=== PATIENT | female | born 1975 | race Caucasian/White ===

== ENCOUNTER 2018-04-13 23:11 | Observation (INO) | payer OTHER ==
[~2018-04-13] VITALS: Ht 175.3 cm; Wt 104.8 kg
[2018-04-13 23:29] VITALS: BP 136/70; PULSE 64; RESP 18; TEMP 98; O2SAT 98
[2018-04-13] MEDS ORDERED: LEVO.2 PO (23:39)
[2018-04-13] MEDS ORDERED: PROP20TA3 PO (23:39)
[2018-04-13] MEDS ORDERED: PROZ20CA11 PO (23:39)
[2018-04-13] MEDS ORDERED: LOSA100T PO (23:39)
[2018-04-13] MEDS ORDERED: SODIUM CHLOR 0.9% 1000 ML INJ 1,000 ML IV SCH (23:48)
[2018-04-14] VITALS (8 sets, daily range): BP systolic 121–160; BP diastolic 64–82; PULSE 67–92; RESP 18–20; TEMP 96.9–98.2; O2SAT 94–98
[2018-04-14] MEDS ORDERED: PROCHLORPERAZINE INJ 10 MG/2 ML VIAL IV PUSH ONE
--- NOTE | 2018-04-14 | PD ---
HPI Chief Complaint: Dizziness Time Seen by Provider: 23:25 Travel History International Travel<30 days: No Contact w/Intl Traveler<30days: No Traveled to known affect area: No History of Present Illness HPI The patient is a 42-year-old female that became confused, experienced vertigo and had blurred vision in both eyes today. She states she has generalized myalgias as well. She also has a headache which is in the left frontal area and goes to the left face and is a 5/10. The headache is dull pain. She has nausea without vomiting but diarrhea for 2 weeks. She states she has a history of thyroid cancer and is followed by an legal billing clerk for this. She states she had a similar episode in 2014 but she got better and she really could not give me a diagnosis at that time. She does feel thirsty and may be dehydrated. She states she has abdominal pain in bilateral lower quadrants which is a 6/ 10 and sharp. She denies any blood in the stool. She denies any fever. She has had a hysterectomy but still has her gallbladder and appendix. She has frequent urination but denies any dysuria or flank pain. PFSH Past Medical History ?: Not Past Surgical History Hysterectomy: Yes (AGE 41) Social History Tobacco Use: No Allergies-Medications (Allergen,Severity, Reaction): Coded Allergies: No Known Allergies (Unverified , 04/13/18) Reported Meds & Prescriptions Reported Meds & Active Scripts Active Reported Lipitor (Atorvastatin Calcium) 20 Mg Tab 20 Mg PO HS Prozac (Fluoxetine HCl) 20 Mg Cap 40 Mg PO DAILY Propranolol (Propranolol HCl) 20 Mg Tab 20 Mg PO DAILY Synthroid (Levothyroxine Sodium) 200 Mcg Tab 200 Mcg PO DAILY Losartan (Losartan Potassium) 100 Mg Tab 100 Mg PO DAILY Review of Systems Except as stated in HPI: all other systems reviewed are Neg Physical Exam Narrative GENERAL: The patient is slightly obese, alert, oriented 3 in minimal apparent distress with her abdominal discomfort and her headache. Her vital signs are normal. SKIN: Focused skin assessment warm/dry. No skin rash is seen. HEAD: Atraumatic. Normocephalic. EYES: Pupils equal and round. No scleral icterus. No injection or drainage. The visual acuity is 20/30 in the left eye and 20/25 in the right eye. ENT: No nasal bleeding or discharge. Mucous membranes pink and moist. NECK: Trachea midline. No JVD. There is no meningismus present. CARDIOVASCULAR: Regular rate and rhythm. No murmur appreciated. RESPIRATORY: No accessory muscle use. Clear to auscultation. Breath sounds equal bilaterally. GASTROINTESTINAL: Abdomen soft, with minimal tenderness in the bilateral suprapubic area, nondistended. Hepatic and splenic margins not palpable. No guarding or rebound is present. MUSCULOSKELETAL: No obvious deformities. No clubbing. No cyanosis. No edema. NEUROLOGICAL: Awake and alert. No obvious cranial nerve deficits. Motor grossly within normal limits. Normal speech and gait. PSYCHIATRIC: Appropriate mood and affect; insight and judgment normal. Data Data Last Documented VS Vital Signs Date Time Temp Pulse Resp B/P (MAP) Pulse Ox O2 Delivery O2 Flow Rate FiO2 04/14/18 00:04 67 151/64 (93) 97 Room Air 04/13/18 23:29 98.0 18 Orders Orders Beta Hcg (Quant/Titer) (04/13/18 23:48) Complete Blood Count With Diff (04/13/18 23:48) Comprehensive Metabolic Panel (04/13/18 23:48) Lipase (04/13/18 23:48) Urinalysis - C+S If Indicated (04/13/18 23:48) Iv Access Insert/Monitor (04/13/18 23:48) Ecg Monitoring (04/13/18 23:48) Oximetry (04/13/18 23:48) Sodium Chlor 0.9% 1000 Ml Inj (Ns 1000 M (04/13/18 23:48) Sodium Chloride 0.9% Flush (Ns Flush) (04/14/18 00:00) Prochlorperazine Inj (Compazine Inj) (04/14/18 00:00) Ct Brain W/O Iv Contrast(Rout) (04/14/18 00:06) Admit Order (Ed Use Only) (04/14/18 01:26) Labs Laboratory Tests Test 04/14/18 00:00 White Blood Count 6.2 TH/MM3 Red Blood Count 4.71 MIL/MM3 Hemoglobin 14.2 GM/DL Hematocrit 41.0 % Mean Corpuscular Volume 87.0 FL Mean Corpuscular Hemoglobin 30.1 PG Mean Corpuscular Hemoglobin Concent 34.6 % Red Cell Distribution Width 12.2 % Platelet Count 402 TH/MM3 Mean Platelet Volume 7.9 FL Neutrophils (%) (Auto) 52.7 % Lymphocytes (%) (Auto) 33.6 % Monocytes (%) (Auto) 7.3 % Eosinophils (%) (Auto) 4.0 % Basophils (%) (Auto) 2.4 % Neutrophils # (Auto) 3.4 TH/MM3 Lymphocytes # (Auto) 2.1 TH/MM3 Monocytes # (Auto) 0.4 TH/MM3 Eosinophils # (Auto) 0.2 TH/MM3 Basophils # (Auto) 0.1 TH/MM3 CBC Comment DIFF FINAL Differential Comment Urine Color YELLOW Urine Turbidity CLEAR Urine pH 5.5 Urine Specific [place] 1.020 Urine Protein NEG mg/dL Urine Glucose (UA) NEG mg/dL Urine Ketones NEG mg/dL Urine Occult Blood NEG Urine Nitrite NEG Urine Bilirubin NEG Urine Urobilinogen 0.2 MG/DL Urine Leukocyte Esterase NEG Urine RBC 0-2 /hpf Urine WBC 0-2 /hpf Urine Squamous Epithelial Cells 0-5 /hpf Urine Bacteria NONE /hpf Microscopic Urinalysis Comment CULT NOT INDICATED Blood Urea Nitrogen 15 MG/DL Creatinine 0.70 MG/DL Random Glucose 90 MG/DL Total Protein 7.7 GM/DL Albumin 3.7 GM/DL Calcium Level 9.2 MG/DL Alkaline Phosphatase 68 U/L Aspartate Amino Transf (AST/SGOT) 22 U/L Alanine Aminotransferase (ALT/SGPT) 32 U/L Total Bilirubin 0.3 MG/DL Sodium Level 137 MEQ/L Potassium Level 3.9 MEQ/L Chloride Level 104 MEQ/L Carbon Dioxide Level 23.4 MEQ/L Anion Gap 10 MEQ/L Estimat Glomerular Filtration Rate 91 ML/MIN Lipase 121 U/L Human Chorionic Gonadotropin, Quant LESS THAN 1 MIU/ML MDM Medical Decision Making Medical Screen Exam Complete: Yes Emergency Medical Condition: Yes Medical Record Reviewed: Yes Differential Diagnosis TIA, migraine headache, viral syndrome, benign positional vertigo, electrolyte disorder, hypo-/hyperglycemia, conversion reaction Narrative Course The patient may have had a TIA. The blurred vision is gone at this time. She still has a myalgias, headache and her visual acuity is 20/30 in the left eye and 20/25 in the right eye. She has multiple complaints and some of these may be a viral etiology like the diarrhea for 2 weeks along with the nausea. The blood work is entirely normal. Some of the ocular symptoms may be related to a migraine headache. She denies any history of migraines. I discussed the patient with Dr. Blake, the patient will be admitted to her for 23 hour observation. Diagnosis Primary Impression: TIA (transient ischemic attack) Additional Impression: Viral syndrome Admitting Information Admitting Physician Requests: Observation Keegan Hobson MD Apr 13, 2018 23:59
[2018-04-14] MEDS ORDERED: LIPI20TA PO (00:06)
[2018-04-14 00:13] LABS: BILIRUBIN, URINE NEG (NEG); BLOOD, URINE NEG (NEG); GLUCOSE,URINE NEG (NEG); KETONE, URINE NEG (NEG); NITRITE,URINE NEG (NEG); PH, URINE 5.5 (5.0-8.5); URINE COLOR YELLOW (YELLW/STRAW); URINE LEUKOCYTE ESTERASE NEG (NEG)
[2018-04-14 00:19] LABS: RBC, URINE 0-2 /hpf (0-3); SQUAMOUS EPITHELIAL CELL URINE 0-5 /hpf (0-5); WBC, URINE 0-2 /hpf (0-5)
[2018-04-14 00:21] LABS: CHLORIDE 104 MEQ/L (98-107); SODIUM (NA) 137 MEQ/L (136-145)
[2018-04-14 00:24] LABS: AUTOMATED NEUTROPHIL # 3.4 TH/MM3 (1.8-7.7); BASOPHIL # 0.1 TH/MM3 (0-0.2); BASOPHIL % 2.4 % (0.0-2.0); CALCIUM 9.2 MG/DL (8.5-10.1); EOSINOPHIL # 0.2 TH/MM3 (0-0.4); HEMOGLOBIN 14.2 GM/DL (11.6-15.3); LYMPH % 33.6 % (9.0-44.0); LYMPHOCYTE # 2.1 TH/MM3 (1.0-4.8); MEAN CORPUSCULAR HEMOGLOBIN 30.1 PG (27.0-34.0); MEAN CORPUSCULAR HGB CONC 34.6 % (32.0-36.0); MEAN PLATELET VOLUME 7.9 FL (7.0-11.0); MONO % 7.3 % (0.0-8.0); MONOCYTE # 0.4 TH/MM3 (0-0.9); NEUT % 52.7 % (16.0-70.0); PLATELET COUNT 402 TH/MM3 (150-450); RED BLOOD COUNT 4.71 MIL/MM3 (4.00-5.30); RED CELL DISTRIBUTION WIDTH 12.2 % (11.6-17.2); WHITE BLOOD COUNT 6.2 TH/MM3 (4.0-11.0)
[2018-04-14 00:25] LABS: ALBUMIN 3.7 GM/DL (3.4-5.0); BICARBONATE 23.4 MEQ/L (21.0-32.0); BLOOD UREA NITROGEN 15 MG/DL (7-18); GLUCOSE,RANDOM 90 MG/DL (74-106)
[2018-04-14 00:28] LABS: ALT (GPT) 32 U/L (10-53); AST (GOT) 22 U/L (15-37); GLOMERULAR FILTRATION RATE 91 ML/MIN (>89)
[2018-04-14 00:29] LABS: TOTAL BILIRUBIN ADULT 0.3 MG/DL (0.2-1.0); TOTAL PROTEIN 7.7 GM/DL (6.4-8.2)
[2018-04-14 00:31] LABS: ALKALINE PHOSPHATASE 68 U/L (45-117)
--- NOTE | 2018-04-14 00:33 | RADRPT ---
EXAM DATE: 04/14/2018 12:21 AM EDT AGE/SEX: 42 years / Female INDICATIONS: Dizziness. Blurred vision. CLINICAL DATA: This is the patient's initial encounter. Patient reports that signs and symptoms have been present for 1 day and indicates a pain score of 6/10. MEDICAL/SURGICAL HISTORY: Hypertension. None. RADIATION DOSE: 52.41 CTDI (mGy) COMPARISON: No prior exams available for comparison. TECHNIQUE: CT of the head without contrast. Using automated exposure control and adjustment of the mA and/or kV according to patient size, radiation dose was kept as low as reasonably achievable to ob tain optimal diagnostic quality images. DICOM format image data is available electronically for revi ew and comparison. FINDINGS: Cerebrum: The ventricles are normal for age. No evidence of midline shift, mass lesion, hemorrhage or acute infarction. No extraaxial fluid collections are seen. Posterior Fossa: The cerebellum and brainstem are intact. The 4th ventricle is midline. The cerebe llopontine angle is unremarkable. Extracranial: The visualized portion of the orbits is intact. Skull: The calvaria is intact. No evidence of skull fracture. CONCLUSION: Negative noncontrast CT examination of the head. Electronically signed by: Albert Mg MD 04/14/2018 12:31 AM EDT
[2018-04-14] MEDS ORDERED: DEXTROSE 50% IN WATER 50 ML VIAL(D50) IV PUSH PRN (01:30)
[2018-04-14] MEDS ORDERED: GLUCAGON 1 MG/ML VIAL OTHER PRN (01:30)
[2018-04-14] MEDS ORDERED: SODIUM CHLORIDE 0.9% FLUSH 10 ML FLUSH IV FLUSH PRN ×2 (01:30)
[2018-04-14] MEDS ORDERED: ASPIRIN 325 MG TAB PO SCH (01:30)
[2018-04-14] MEDS: INSULIN ASPART SUPPLEMENTAL SCALE SQ SCH ×4 (08:00→21:00)
[2018-04-14] MEDS: SODIUM CHLORIDE 0.9% FLUSH 10 ML FLUSH IV FLUSH SCH ×2 (08:14→22:05)
--- NOTE | 2018-04-14 10:48 | HHI.HP ---
HPI Service [facility] Primary Care Physician No Primary Care Physician Admission Diagnosis TIA, viral syndrome Diagnoses: (1) TIA (transient ischemic attack) (2) Viral syndrome Chief Complaint: Dizziness Blurry vision Travel History International Travel<30 Days: No Contact w/Intl Traveler <30 Da: No Traveled to Known Affected Are: No History of Present Illness This is a 42-year-old female patient with a known medical history of hypertension, hyperlipidemia, thyroid cancer status post thyroidectomy who presented to the ED with complaints of dizziness, blurry vision and poor balance at home. Patient states that her symptoms started 2 days ago and has not improved. She does also admit to a frontal headache that is intermittent and comes and goes during the day. She states she has been taking naproxen which does relieve the headache. She does also admit to increasing fatigue as well as general malaise. She does admit to intermittent nausea as well as diarrhea. Patient also admits to some abdominal pain in the bilateral lower quadrants, worse with movement and sharp in nature. She denies any chest pain, shortness of breath, cough, vomiting or dysuria. Patient does have a history of thyroid cancer, follows with an metaphysics teacher Dr. Verma, was last seen a week ago. At that time her TSH was less than 0.02 and per patient her levothyroxine dose was adjusted. Patient does admit to similar symptoms in 2014 , did not follow with a neurologist and symptoms just improved on their own. Does not have a PCP. Upon assessment this morning, patient's symptoms have resolved. Does complain of continued fatigue. Physical therapy evaluation performed today, no further need for assessment. Head CT negative. Awaiting MRI as well as neurology consult. Review of Systems Constitutional: COMPLAINS OF: Fatigue, Dizziness, DENIES: Fever, Chills, Change in appetite Eyes: COMPLAINS OF: Blurred vision, DENIES: Diplopia, Eye pain, Vision loss, Double Vision Ears, nose, mouth, throat: DENIES: Hearing loss, Oral lesions, Ear Pain Respiratory: DENIES: Cough, Sputum production, Shortness of breath Cardiovascular: DENIES: Chest pain, Palpitations, Syncope Gastrointestinal: COMPLAINS OF: Abdominal pain, Nausea, DENIES: Black stools, Bloody stools, Constipation, Diarrhea, Vomiting Genitourinary: DENIES: Abnormal vaginal bleeding Musculoskeletal: DENIES: Joint pain Hematologic/lymphatic: DENIES: Bruising Immunologic/allergic: DENIES: Eczema Neurologic: COMPLAINS OF: Headache, Poor Balance Psychiatric: COMPLAINS OF: Anxiety Except as stated in HPI: all other systems reviewed are Neg Past Family Social History Past Medical History History of thyroid cancer status post thyroidectomy Hypertension Hyperlipidemia Past Surgical History Hysterectomy in 2012 Thyroidectomy. Reported Medications Active Reported Lipitor (Atorvastatin Calcium) 20 Mg Tab 20 Mg PO HS Prozac (Fluoxetine HCl) 20 Mg Cap 40 Mg PO DAILY Propranolol (Propranolol HCl) 20 Mg Tab 20 Mg PO DAILY Synthroid (Levothyroxine Sodium) 200 Mcg Tab 200 Mcg PO DAILY Losartan (Losartan Potassium) 100 Mg Tab 100 Mg PO DAILY Allergies: Coded Allergies: No Known Allergies (Unverified , 04/13/18) Active Ordered Medications Current Medications Medications (Trade) Dose Ordered Sig/Milena Route Start Time Stop Time Status Last Admin (NS Flush) 2 ml BID IV FLUSH 04/14/18 09:00 04/14/18 08:14 (NS Flush) 2 ml UNSCH PRN IV FLUSH 04/14/18 01:30 (NovoLOG SUPPLEMENTAL SCALE) 1 ACHS SQ 04/14/18 08:00 (D50w (Vial) Inj) 50 ml UNSCH PRN IV PUSH 04/14/18 01:30 (Glucagon Inj) 1 mg UNSCH PRN OTHER 04/14/18 01:30 Family History Family history significant for hypertension, diabetes and hyperlipidemia. Maternal grandmother had history of bone cancer. Social History Patient denies any tobacco, alcohol or illicit drug use. Physical Exam Vital Signs Vital Signs Date Time Temp Pulse Resp B/P (MAP) Pulse Ox O2 Delivery O2 Flow Rate FiO2 04/14/18 07:36 98.0 75 20 160/81 (107) 94 04/14/18 04:00 96.9 87 18 140/82 (101) 95 04/14/18 02:00 96.9 73 18 146/77 (100) 96 04/14/18 01:57 04/14/18 00:04 67 151/64 (93) 97 Room Air 04/13/18 23:50 59 Room Air 04/13/18 23:29 98.0 64 18 136/70 (49) 98 Physical Exam GENERAL: Well-developed, well-nourished patient in NAD. SKIN: Warm and dry. No rash. HEAD: Normocephalic. Atraumatic. EYES: Pupils equal and round. No scleral icterus. No injection or drainage. ENT: No nasal bleeding or discharge. Mucous membranes pink and moist. NECK: Supple. Trachea midline. CARDIOVASCULAR: Regular rate and rhythm. S1, S2 noted. No murmur appreciated. RESPIRATORY: No accessory muscle use. Clear to auscultation. Breath sounds equal bilaterally. GASTROINTESTINAL: Abdomen soft, non-tender, nondistended. Normoactive bowel sounds x4. MUSCULOSKELETAL: No obvious deformities. Extremities without clubbing, cyanosis , or edema. NEUROLOGICAL: Awake and alert. No obvious cranial nerve deficits. Motor grossly within normal limits. 5/5 muscle strength in bilateral upper and lower extremities. Normal speech. PSYCHIATRIC: Appropriate mood and affect; insight and judgment normal. Laboratory Laboratory Tests Test 04/14/18 00:00 White Blood Count 6.2 Red Blood Count 4.71 Hemoglobin 14.2 Hematocrit 41.0 Mean Corpuscular Volume 87.0 Mean Corpuscular Hemoglobin 30.1 Mean Corpuscular Hemoglobin Concent 34.6 Red Cell Distribution Width 12.2 Platelet Count 402 Mean Platelet Volume 7.9 Neutrophils (%) (Auto) 52.7 Lymphocytes (%) (Auto) 33.6 Monocytes (%) (Auto) 7.3 Eosinophils (%) (Auto) 4.0 Basophils (%) (Auto) 2.4 Neutrophils # (Auto) 3.4 Lymphocytes # (Auto) 2.1 Monocytes # (Auto) 0.4 Eosinophils # (Auto) 0.2 Basophils # (Auto) 0.1 CBC Comment DIFF FINAL Differential Comment Urine Color YELLOW Urine Turbidity CLEAR Urine pH 5.5 Urine Specific [place] 1.020 Urine Protein NEG Urine Glucose (UA) NEG Urine Ketones NEG Urine Occult Blood NEG Urine Nitrite NEG Urine Bilirubin NEG Urine Urobilinogen 0.2 Urine Leukocyte Esterase NEG Urine RBC 0-2 Urine WBC 0-2 Urine Squamous Epithelial Cells 0-5 Urine Bacteria NONE Microscopic Urinalysis Comment CULT NOT INDICATED Blood Urea Nitrogen 15 Creatinine 0.70 Random Glucose 90 Total Protein 7.7 Albumin 3.7 Calcium Level 9.2 Alkaline Phosphatase 68 Aspartate Amino Transf (AST/SGOT) 22 Alanine Aminotransferase (ALT/SGPT) 32 Total Bilirubin 0.3 Sodium Level 137 Potassium Level 3.9 Chloride Level 104 Carbon Dioxide Level 23.4 Anion Gap 10 Estimat Glomerular Filtration Rate 91 Lipase 121 Human Chorionic Gonadotropin, Quant LESS THAN 1 Result Diagram: 04/14/18 0000 04/14/18 0000 Imaging Last Impressions Head CT 04/14/18 0006 Signed Impressions: CONCLUSION: Negative noncontrast CT examination of the head. Septic Shock Reassessment Septic shock perfusion: reassessment completed Caprini VTE Risk Assessment Caprini VTE Risk Assessment: No/Low Risk (score <= 1) Caprini Risk Assessment Model Point Value = 1 Point Value = 2 Point Value = 3 Point Value = 5 Age 41-60 Minor surgery BMI > 25 kg/m2 Swollen legs Varicose veins or History of unexplained or recurrent spontaneous Oral contraceptives or hormone replacement Sepsis (< 1 month) Serious lung disease, including pneumonia (< 1 month) Abnormal pulmonary function Acute myocardial infarction Congestive heart failure (< 1 month) History of inflammatory bowel disease Medical patient at bed rest Age 61-74 Arthroscopic surgery Major open surgery (> 45 min) Laparoscopic surgery (> 45 min) Malignancy Confined to bed (> 72 hours) Immobilizing plaster cast Central venous access Age >= 75 History of VTE Family history of VTE Factor V Leiden Prothrombin [id number] Lupus anticoagulant Anticardiolipin antibodies Elevated serum homocysteine Heparin-induced thrombocytopenia Other congenital or acquired thrombophilia Stroke (< 1 month) Elective arthroplasty Hip, pelvis, or leg fracture Acute spinal cord injury (< 1 month) Prophylaxis Regimen Total Risk Factor Score Risk Level Prophylaxis Regimen 0-1 Low Early ambulation 2 Moderate Order ONE of the following: *Sequential Compression Device (SCD) *Heparin 5000 units SQ BID 3-4 Higher Order ONE of the following medications: *Heparin 5000 units SQ TID *Enoxaparin/Lovenox 40 mg SQ daily (WT < 150 kg, CrCl > 30 mL/min) *Enoxaparin/Lovenox 30 mg SQ daily (WT < 150 kg, CrCl > 10-29 mL/min) *Enoxaparin/Lovenox 30 mg SQ BID (WT < 150 kg, CrCl > 30 mL/min) AND/OR *Sequential Compression Device (SCD) 5 or more Highest Order ONE of the following medications: *Heparin 5000 units SQ TID (Preferred with Epidurals) *Enoxaparin/Lovenox 40 mg SQ daily (WT < 150 kg, CrCl > 30 mL/min) *Enoxaparin/Lovenox 30 mg SQ daily (WT < 150 kg, CrCl > 10-29 mL/min) *Enoxaparin/Lovenox 30 mg SQ BID (WT < 150 kg, CrCl > 30 mL/min) AND *Sequential Compression Device (SCD) Assessment and Plan Assessment and Plan This is a 42-year-old female patient with a known medical history of hypertension, hyperlipidemia, thyroid cancer status post thyroidectomy who presented to the ED with complaints of dizziness, blurry vision and poor balance at home. Rule out CVA versus TIA - Patient presented with dizziness, blurry vision and headache. Symptoms have improved. - Head CT reviewed showing no acute disease. Brain MRI pending. Will follow. - Neurology consulted, input and recommendations pending. - CBC and BMP reviewed, essentially unremarkable. UA negative. - Continue cardiac telemetry, monitor for any arrhythmias. - PT has seen patient, appreciate input and recommendations, no further recommendations. Abdominal pain with nausea and diarrhea 2 weeks - Rule out viral syndrome - Check abdominal/pelvis CT. Likely gastroenteritis. Will add stool studies including c diff. - Ensure hydration. Encourage PO intake. Status post 1 L NS bolus in ED. Thyroid disease status post thyroidectomy: TSH 0.02. Awaiting free T4. We will hold home levothyroxine for now. Hypertension, chronic: Will continue home medications. Monitor blood pressure trends. Hyperlipidemia, chronic: Will continue home statin. DVT prophylaxis: SCDs. Maria Alejandra Hobbs Apr 14, 2018 10:48
[2018-04-14] MEDS ORDERED: DIATRIZOATE MEGLUM/DIATRIZOATE SOD 9 ML CUP PO ONE (13:00)
--- NOTE | 2018-04-14 13:36 | EKG ---
Date Performed: 04/13/2018 Time Performed: 23:40:22 PTAGE: 42 years EKG: SINUS BRADYCARDIA BORDERLINE ECG NO PREVIOUS TRACING DOCTOR: Wander Cadena Interpretating Date/Time 04/14/2018 13:34:50
[2018-04-14 13:40] LABS: HEMOGLOBIN A1C 5.5 % (4.3-6.0)
[2018-04-14 14:14] LABS: FREE T4 1.39 NG/DL (0.76-1.46)
[2018-04-14] MEDS ORDERED: IOHEXOL 350 MG/ML 10 ML VIAL (for RAD DIAG) IVCONTRAST ONE (15:35)
--- NOTE | 2018-04-14 15:50 | RADRPT ---
EXAM DATE: 04/14/2018 3:41 PM EDT AGE/SEX: 42 years / Female INDICATIONS: Bilateral lower quadrant pain. CLINICAL DATA: This is the patient's initial encounter. Patient reports that signs and symptoms have been present for 3 days and indicates a pain score of 4/10. MEDICAL/SURGICAL HISTORY: Hypertension. Gastroesophageal reflux disease. Carcinoma, thyroid. Hysterectomy. Thyroidectomy. ORAL CONTRAST: Prescribed oral contrast ingested. RADIATION DOSE: 21.59 CTDI (mGy) COMPARISON: No prior exams available for comparison. TECHNIQUE: Multiple contiguous axial images were obtained through the abdomen and pelvis following b olus infusion of 95 ml Omnipaque 350 (iohexol) nonionic water-soluble contrast as a single exam dos e. Prescribed oral contrast ingested. Using automated exposure control and adjustment of the mA and/ or kV according to patient size, radiation dose was kept as low as reasonably achievable to obtain op timal diagnostic quality images. DICOM format image data is available electronically for review and comparison. FINDINGS: Lower chest: No acute abnormality is identified. Hepatobiliary: No focal liver lesion is identified. Hepatic vasculature demonstrates no abnormality. No calcified gallstones are present. Kidneys: No hydronephrosis, stone, or mass. Adrenal Glands: Within normal limits. Spleen: Within normal limits. Pancreas: Within normal limits. Vascular: The aorta is nonaneurysmal. Bowel/Mesentery: The stomach and small bowel demonstrate no abnormality. No acute colon abnormality i s seen. There is no free intraperitoneal air or fluid. The appendix is normal. Abdominal Wall: No hernia is visualized. Retroperitoneum: No lymphadenopathy. Bladder: No wall thickening or mass. Reproductive: Uterus is absent. There are bilateral ovarian cystic lesions measuring up to 1.7 cm on the left and 2.3 cm on the right. These appear simple. Inguinal: No lymphadenopathy or hernia. Musculoskeletal: No acute osseous abnormality is identified. CONCLUSION: 1. No specific abnormality is identified to explain the bilateral lower quadrant pain. There are mary ann ateral ovarian cystic lesions that most likely represent large functional cyst/follicles. 2. Remainder of the examination is within normal limits. Electronically signed by: Albert Salmeron MD 04/14/2018 3:49 PM EDT
--- NOTE | 2018-04-14 15:56 | RADRPT ---
EXAM DATE: 04/14/2018 3:42 PM EDT AGE/SEX: 42 years / Female INDICATIONS: CVA. Confusion. CLINICAL DATA: This is the patient's initial encounter. Patient reports that signs and symptoms have been present for 2 days and indicates a pain score of 0/10. MEDICAL/SURGICAL HISTORY: Hypertension. Hypercholesterolemia. Carcinoma, thyroid. Hysterectom y. Thyroidectomy. COMPARISON: [facility], CT BRAIN W/O CONTRAST, 04/14/2018. . TECHNIQUE: Multiplanar, multisequence examination of the brain was performed without contrast. FINDINGS: Cerebrum: Ventricles are normal. No midline shift, mass lesion, hemorrhage or acute infarction. No extraaxial fluid collections are seen. The pituitary gland and suprasellar cistern are normal in con figuration. White Matter: Posterior Fossa: The cerebellum and brainstem demonstrate no acute abnormality. The 4th ventricle is midline. The cerebellopontine angle is within normal limits. The cerebellar tonsils are normal in p osition. Diffusion Imaging: No areas of restricted diffusion are seen. Extracranial: The visualized sinuses are clear. CONCLUSION: Negative brain MRI without contrast. There are no findings to indicate recent ischemia. Electronically signed by: Albert Salmeron MD 04/14/2018 3:55 PM EDT
--- NOTE | 2018-04-14 19:43 | MB ---
cc: Tobias Jonas MD, PhD DATE: 04/14/2018 REASON FOR CONSULTATION: Possible TIA. HISTORY OF PRESENT ILLNESS: This is a pleasant 42-year-old female who states that she was in her usual state of good health until the weekend, when she developed sudden onset of dizziness as well as blurred vision and balance difficulty. That eventually improved but then she had a recurrent episode the day after and this persisted, so she came to the emergency room. She had a mild frontal headache. Her symptoms have largely improved at the present time. She had no double vision or focal weakness or numbness. PAST MEDICAL HISTORY: Remarkable for history of thyroid cancer treated with thyroidectomy, hypertension, hyperlipidemia, and hysterectomy. MEDICATIONS AT HOME: 1. Lipitor. 2. Prozac. 3. Propranolol. 4. Synthroid. 5. Losartan. ALLERGIES: NONE KNOWN. NEUROLOGIC EXAMINATION: VITAL SIGNS: Blood pressure is 124/68, pulse is 72, respiratory rate is 20, temperature 97.8 degrees. HIGHER CORTICAL FUNCTIONS: Normal. She is alert. Speech is normal. CRANIAL NERVES: The extraocular movements are normal. There is no nystagmus. The pupils are equal and reactive. MOTOR EXAM: She has 5/5 strength in all groups. There is no drift. Fine motor skills normal. Cerebellar testing is normal. Reflexes are 2+ symmetrically in the upper and lower extremities. IMAGING STUDIES: CT of the brain is normal. MRI of the brain is normal. Abdominal CT shows bilateral ovarian cysts remaining normal. LABORATORY DATA: White count 6200; hemoglobin 14.2; hematocrit 41%; platelet count 402,000. The sodium is 137, potassium 3.9, chloride 104, CO2 of 23.4, BUN is 15, creatinine 0.7, GFR 91, glucose is 90. Hemoglobin A1c 5.5, AST 22, ALT 32. TSH 0.26. UA is normal. ASSESSMENT: Transient ataxia and vertigo associated with a mild headache. This may be a neurologic migraine. She also has a history of abdominal pain with nausea and diarrhea for 2 weeks. Transient ischemic attack would be in the differential, although somewhat less likely. RECOMMENDATIONS: I would like to get an MR angiogram of the brain to be sure there is no vascular lesion. Start aspirin 81 mg daily for the possible TIA. Also, check labs to rule out hypercoagulable state and a carotid ultrasound and echocardiogram. The other possibility would be some transient hypotension related to her gastroenteritis. We will check orthostatic blood pressure and pulse to be sure she does not have orthostatic hypotension. Tobias Jonas MD, PhD ISMA/KATHI , 05:51 PM , 07:42 PM
[2018-04-14] MEDS ORDERED: ATORVASTATIN 20 MG TAB PO SCH (21:00)
[2018-04-15] VITALS: BP 135/74; PULSE 95; RESP 20; TEMP 98.1; O2SAT 98
[2018-04-15 04:00] VITALS: BP 146/72; PULSE 88; RESP 20; TEMP 97.4; O2SAT 97
[2018-04-15 06:34] LABS: AUTOMATED NEUTROPHIL # 3.8 TH/MM3 (1.8-7.7); BASOPHIL % 0.2 % (0.0-2.0); EOSINOPHIL # 0.1 TH/MM3 (0-0.4); EOSINOPHIL % 1.7 % (0.0-4.0); HEMATOCRIT 40.1 % (35.0-46.0); HEMOGLOBIN 13.9 GM/DL (11.6-15.3); LYMPH % 25.6 % (9.0-44.0); LYMPHOCYTE # 1.5 TH/MM3 (1.0-4.8); MEAN CELL VOLUME 87.5 FL (80.0-100.0); MEAN CORPUSCULAR HEMOGLOBIN 30.4 PG (27.0-34.0); MEAN CORPUSCULAR HGB CONC 34.7 % (32.0-36.0); MEAN PLATELET VOLUME 7.5 FL (7.0-11.0); MONOCYTE # 0.5 TH/MM3 (0-0.9); NEUT % 64.5 % (16.0-70.0); PLATELET COUNT 376 TH/MM3 (150-450); RED BLOOD COUNT 4.59 MIL/MM3 (4.00-5.30); RED CELL DISTRIBUTION WIDTH 11.7 % (11.6-17.2); WHITE BLOOD COUNT 5.9 TH/MM3 (4.0-11.0)
[2018-04-15 06:53] LABS: BICARBONATE 25.1 MEQ/L (21.0-32.0)
[2018-04-15 06:56] LABS: CREATININE 0.6 MG/DL (0.50-1.00)
[2018-04-15] MEDS: INSULIN ASPART SUPPLEMENTAL SCALE SQ SCH (07:42)
[2018-04-15 08:00] VITALS: BP 147/76; PULSE 71; RESP 17; TEMP 97.6; O2SAT 97
[2018-04-15] MEDS: SODIUM CHLORIDE 0.9% FLUSH 10 ML FLUSH IV FLUSH SCH (08:25)
[2018-04-15] MEDS ORDERED: FLUoxetine HCL 20 MG CAP PO SCH (09:00)
[2018-04-15] MEDS ORDERED: LOSARTAN 50 MG TAB PO SCH (09:00)
[2018-04-15] MEDS ORDERED: PROPRANOLOL HCL 20 MG TAB PO SCH (09:00)
[2018-04-15] MEDS ORDERED: ASPIRIN 81 MG CHEW TAB PO SCH (09:00)
--- NOTE | 2018-04-15 09:05 | HHI.PR ---
Subjective Remarks Follow-up neuro changes, abdominal pain. Patient seen and examined, lying in bed comfortably no apparent distress. Neurology input appreciated. Awaiting MRI this morning. Patient does complain of continued headache. States she has not eat anything which may be contributing. Vital signs stable overnight. Afebrile. Denies any chest pain or shortness of breath. Objective Vitals Vital Signs Date Time Temp Pulse Resp B/P (MAP) Pulse Ox O2 Delivery O2 Flow Rate FiO2 04/15/18 08:00 97.6 71 17 147/76 (99) 97 04/15/18 04:00 97.4 88 20 146/72 (96) 97 04/15/18 00:00 98.1 95 20 135/74 (94) 98 04/14/18 23:00 92 04/14/18 20:00 98.2 85 20 142/66 (91) 96 04/14/18 15:14 97.8 72 20 124/68 (86) 98 04/14/18 11:22 98.0 67 20 121/69 (86) 98 I/O 04/14/18 04/14/18 04/14/18 04/15/18 04/15/18 04/15/18 07:00 15:00 23:00 07:00 15:00 23:00 Intake Total 1000 ml 0 ml 0 ml Balance 1000 ml 0 ml 0 ml Intake Oral 0 ml 0 ml 0 ml IV Total 1000 ml # Voids 4 4 8 # Bowel Movements 4 8 Result Diagram: 04/15/18 0550 04/15/18 0550 Imaging Last Impressions Head Magnetic Resonance Angiography 04/15/18 0000 Signed Impressions: CONCLUSION: 1. Patient is left vertebral dominant. Anatomic variant of the [place] s as above. 2. Otherwise, intracranial vessels are all patent without aneurysmal disease. Carotid Artery Ultrasound 04/15/18 0000 Signed Impressions: CONCLUSION: No evidence of flow-limiting carotid stenosis. Head CT 04/14/18 0006 Signed Impressions: CONCLUSION: Negative noncontrast CT examination of the head. Brain MRI 04/14/18 0000 Signed Impressions: CONCLUSION: Negative brain MRI without contrast. There are no findings to indicate recent i schemia. Abdomen/Pelvis CT 04/14/18 0000 Signed Impressions: CONCLUSION: 1. No specific abnormality is identified to explain the bilateral lower quadra nt pain. There are bilateral ovarian cystic lesions that most likely represent large functional cyst/follicles. 2. Remainder of the examination is within normal limits. Objective Remarks GENERAL: Well-developed, well-nourished patient in NAD. SKIN: Warm and dry. No rash. HEAD: Normocephalic. Atraumatic. EYES: Pupils equal and round. No scleral icterus. No injection or drainage. ENT: No nasal bleeding or discharge. Mucous membranes pink and moist. NECK: Supple. Trachea midline. CARDIOVASCULAR: Regular rate and rhythm. S1, S2 noted. No murmur appreciated. RESPIRATORY: No accessory muscle use. Clear to auscultation. Breath sounds equal bilaterally. GASTROINTESTINAL: Abdomen soft, non-tender, nondistended. Normoactive bowel sounds x4. MUSCULOSKELETAL: No obvious deformities. Extremities without clubbing, cyanosis , or edema. NEUROLOGICAL: Awake and alert. No obvious cranial nerve deficits. Motor grossly within normal limits. 5/5 muscle strength in bilateral upper and lower extremities. Normal speech. PSYCHIATRIC: Appropriate mood and affect; insight and judgment normal. A/P Problem List: (1) TIA (transient ischemic attack) ICD Code: G45.9 - Transient cerebral ischemic attack, unspecified Status: Acute (2) Viral syndrome ICD Code: B34.9 - Viral infection, unspecified Status: Acute Assessment and Plan This is a 42-year-old female patient with a known medical history of hypertension, hyperlipidemia, thyroid cancer status post thyroidectomy who presented to the ED with complaints of dizziness, blurry vision and poor balance at home. Rule out CVA versus TIA - Patient presented with dizziness, blurry vision and headache. Symptoms have improved. - Head CT reviewed showing no acute disease. Brain MRI negative. Carotid ultrasound negative. - Neurology consulted, appreciate input and recommendations. Awaiting ordered lab work. Follow. - CBC and BMP reviewed, essentially unremarkable. UA negative. Lipid panel unremarkable. - Continue cardiac telemetry, monitor for any arrhythmias. No arrhythmias overnight. - PT has seen patient, appreciate input and recommendations, no further recommendations. Abdominal pain with nausea and diarrhea 2 weeks - Rule out viral syndrome/enteritis - Abdominal/pelvis CT reviewed showing no specific abnormality. Likely gastroenteritis. Stool studies pending. Follow. - Ensure hydration. Encourage PO intake. Status post 1 L NS bolus in ED. Thyroid disease status post thyroidectomy: TSH 0.02. Free T4 1.39. We will hold home levothyroxine for now. Hypertension, chronic: Will continue home medications. Monitor blood pressure trends. Hyperlipidemia, chronic: Will continue home statin. DVT prophylaxis: SCDs. Discharge Planning Pending clinical improvement as well as neurological workup. Maria Alejandra Hobbs Apr 15, 2018 09:05
--- NOTE | 2018-04-15 10:50 | RADRPT ---
EXAM DATE: 04/15/2018 9:52 AM EDT AGE/SEX: 42 years / Female INDICATIONS: Transient ischemic attack. CLINICAL DATA: This is the patient's initial encounter. Patient reports that signs and symptoms have been present for 1 day and indicates a pain score of 0/10. MEDICAL/SURGICAL HISTORY: Hypercholesterolemia. Gastroesophageal reflux disease. Thyroid disea se. Hyperlipidemia. Abdominal pain. Ovarian cysts. Depression. Anxiety. Anemia. Hysterectomy. COMPARISON: No prior exams available for comparison. VELOCITY PARAMETERS: ICA/CCA Ratio: Right 0.9 , Left 1.2 ICA: Right 87 cm/sec, Left 108 cm/sec CCA: Right 92 cm/sec, Left 92 cm/sec ECA: Right 84 cm/sec, Left 92 cm/sec Vertebral: Right 51 cm/sec antegrade, Left 52 cm/sec antegrade FINDINGS: Right Carotid: No significant plaque is visualized.The waveforms are within normal limits. Left Carotid: No significant plaque is visualized. The waveforms are within normal limits. Other: None. CONCLUSION: No evidence of flow-limiting carotid stenosis. Electronically signed by: Albert Francis MD 04/15/2018 10:49 AM EDT
[2018-04-15 10:54] LABS: CHOLESTEROL/ HDL RATIO 4.75 RATIO; HDL CHOLESTEROL 39.3 MG/DL (40.0-60.0)
--- NOTE | 2018-04-15 11:24 | RADRPT ---
EXAM DATE: 04/15/2018 11:12 AM EDT AGE/SEX: 42 years / Female INDICATIONS: Dizziness. CLINICAL DATA: This is the patient's subsequent encounter. Patient reports that signs and symptoms h ave been present for 2 days and indicates a pain score of 0/10. MEDICAL/SURGICAL HISTORY: Hypertension. Carcinoma, thyroid. Hysterectomy. Thyroidectomy. COMPARISON: No prior exams available for comparison. TECHNIQUE: 3D [id number] MRA was performed. Source images, multiplanar STS MIP, and 3D volum e MIP reconstructions were reviewed. FINDINGS: There is excellent visualization of the major intracranial arteries out to the second-order branch ve ssels. There is no evidence for aneurysm, vessel truncation or stenosis, and no evidence for vascula r malformation. Patient is left vertebral dominant. 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 Dominant supply to the left posterior cerebral artery is via the left kidney. 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 CONCLUSION: 1. Patient is left vertebral dominant. Anatomic variant of the [place] as above. 2. Otherwise, intracranial vessels are all patent without aneurysmal disease. Electronically signed by: Pritesh Clemons MD 04/15/2018 11:22 AM EDT
[2018-04-15 12:00] VITALS: BP_SYST 130; BP_SYST 137; BP_SYST 155; BP_DIAS 74; BP_DIAS 91; BP_DIAS 94; PULSE 71; RESP 16; TEMP 97.2; O2SAT 98
--- NOTE | 2018-04-15 13:24 | ECHRPT ---
Indication: TIA CONCLUSIONS The left ventricular systolic function is low normal with an estimated ejection fraction in the rang e of 50- 55%. Mild concentric left ventricular hypertrophy. Normal left ventricular size. Trace mitral valve regurgitation. There is trace tricuspid valve regurgitation. The estimated pulmonary arterial pressure is 29.4 mmHg. BP: / HR: Rhythm: Sinus MEASUREMENTS (Male / Female) Normal Values Technical Quality:Fair 2D ECHO LV Diastolic Diameter PLAX 3.8 cm 4.2 - 5.9 / 3.9 - 5.3 cm LV Systolic Diameter PLAX 2.9 cm IVS Diastolic Thickness 1.0 cm 0.6 - 1.0 / 0.6 - 0.9 cm LVPW Diastolic Thickness 1.0 cm 0.6 - 1.0 / 0.6 - 0.9 cm LV Relative Wall Thickness 0.5 RV Internal Dim ED PLAX 3.3 cm LVOT Diameter 1.9 cm LA Systolic Diameter LX 3.2 cm 3.0 - 4.0 / 2.7 - 3.8 cm M-MODE Aortic Root Diameter MM 2.9 cm LA Systolic Diameter MM 3.4 cm LA Ao Ratio MM 1.2 AV Cusp Separation MM 2.0 cm DOPPLER AV Peak Velocity 152.0 cm/s AV Peak Gradient 9.2 mmHg LVOT Peak Velocity 129.0 cm/s LVOT Peak Gradient 6.7 mmHg AV Area Cont Eq pk 2.4 cm MV Area PHT 3.4 cm Mitral E Point Velocity 88.8 cm/s Mitral A Point Velocity 57.6 cm/s Mitral E to A Ratio 1.5 LV E' Lateral Velocity 16.0 cm/s Mitral E to LV E' Lateral Ratio 5.5 LV E' Septal Velocity 9.9 cm/s Mitral E to LV E' Septal Ratio 8.9 TR Peak Velocity 220.0 cm/s TR Peak Gradient 19.4 mmHg Right Atrial Pressure 10.0 mmHg Pulmonary Artery Systolic Pressu 29.4 mmHg Right Ventricular Systolic Press 29.4 mmHg FINDINGS LEFT VENTRICLE The left ventricular systolic function is low normal with an estimated ejection fraction in the rang e of 50- 55%. Mild concentric left ventricular hypertrophy. Normal left ventricular size. RIGHT VENTRICLE Normal right ventricular size and systolic function. LEFT ATRIUM The left atrial size is normal. RIGHT ATRIUM The right atrial size is normal. ATRIAL SEPTUM Normal atrial septal thickness without atrial level shunting by limited color doppler interrogation. AORTA The aortic root and proximal ascending aorta are normal in size on limited imaging. MITRAL VALVE Structurally normal mitral valve. Trace mitral valve regurgitation. AORTIC VALVE Trileaflet aortic valve. No aortic valve stenosis or regurgitation. TRICUSPID VALVE Structurally normal tricuspid valve. There is trace tricuspid valve regurgitation. The estimated pulmonary arterial pressure is 29.4 mmHg. PULMONARY VALVE No pulmonary valve regurgitation or stenosis. VESSELS The inferior vena cava is normal in size. PERICARDIUM No pericardial effusion. Luis Montana MD, FACC, [facility] – [place] (Electronically Signed) Final Date:15 April 2018 13:23
[2018-04-15] MEDS ORDERED: ASPI81 PO (14:28)
--- NOTE | 2018-04-15 14:28 | HHI.DCPOC ---
Discharge Care Plan Diagnosis: (1) TIA (transient ischemic attack) (2) Viral syndrome Goals to Promote Your Health * To prevent worsening of your condition and complications * To maintain your health at the optimal level Directions to Meet Your Goals Take your medications as prescribed Follow your dietary instruction Follow activity as directed Keep your appointments as scheduled Take your immunizations and boosters as scheduled If your symptoms worsen call your PCP, if no PCP go to Urgent Care Center or Emergency Room Smoking is Dangerous to Your Health. Avoid second hand smoke Call the 24-hour hour crisis hotline for domestic abuse at Maria Alejandra Hobbs Apr 15, 2018 14:28
[2018-04-16 15:16] LABS: CARDIOLIPIN IGG AB <9.4 GPL; CARDIOLIPIN IGM AB <9.4 MPL
== END 2018-04-15 16:29 | disposition home or self-care (01) ==
LOC: PHED 23:11 → PHEDA 04-14 01:29 → PH3B 04-14 01:58
PROVIDERS: ADMIT Hospitalist; ATTEND Hospitalist
DX: G45.9 Transient cerebral ischemic attack, unspecified (principal); M79.1 Myalgia; R51 Headache; R11.0 Nausea; R19.7 Diarrhea, unspecified; Z85.850 Personal history of malignant neoplasm of thyroid; Z90.710 Acquired absence of both cervix and uterus; R35.0 Frequency of micturition; Z79.899 Other long term (current) drug therapy; I10 Essential (primary) hypertension; E78.5 Hyperlipidemia, unspecified; B34.9 Viral infection, unspecified; R00.1 Bradycardia, unspecified
CPT/HCPCS: 70450; 70544; 70551; 74177; 80048; 80053; 80061; 81001; 81240; 81241; 82948; 83036; 83690; 84439; 84443; 84702; 85025; 85303; 85306; 85613; 85730; 86147; 87329; 87493; 87506; 93005; 93306; 93880; 96361; 96374; 97162; 97166; 99285; G0378; G8987; G8988; J0780; J7030; Q9963; Q9967